=== PATIENT | male | born 1955 | race Caucasian/White ===

== ENCOUNTER → 2017-01-20 | Outpatient (CLI) | payer OTHER ==
[~2017-01-20] MED LIST: CENTRUM SILVER1 EAC3 PO; FISH OIL 1,0001 EAC7 PO; FLONASE ALLERG9.9 ML BOTH NARES; FLOVENT 44120 INHALA IH; MOTRIN800 MG PO; VENTOLIN HFA18 GM IH
== END | disposition home or self-care (01) ==
LOC: CDC 08:48
DX: R00.1 Bradycardia, unspecified (principal); M79.9 Soft tissue disorder, unspecified
CPT/HCPCS: 93000